=== PATIENT | male | born 1965 | race Caucasian/White ===

== ENCOUNTER → 2021-10-04 | Day surgery (SDC) | payer MEDICARE ==
[~2021-10-04] VITALS: Ht 177.8 cm; Wt 76.4 kg
[~2021-10-04] MED LIST: ACID REDUCER20 MG PO; FLEXERIL10 MG PO; FLOMAX0.4 MG PO; HYDROCODONE PO; NAPROXEN500 MG PO; NEURONTIN300 MG PO; NORCO 5-325 TA1 EACH PO; PRILOSEC20 MG PO; VITAMIN D-32000 UNIT PO; VOLTAREN **OUT75 MG PO; XARELTO10 MG PO; ZOCOR20 MG PO
== END | disposition home or self-care (01) ==
LOC: FAS 09:11
DX: M65.312 Trigger thumb, left thumb (principal); M65.842 Other synovitis and tenosynovitis, left hand; Z20.822 Contact with and (suspected) exposure to COVID-19
CPT/HCPCS: J2250; J2405; J2704; J3010; J7120; U0002